=== PATIENT | male | born 1960 | race Caucasian/White ===

== ENCOUNTER 2017-12-27 10:15 | Emergency (ER) | payer OTHER ==
[~2017-12-27] VITALS: Ht 185.4 cm; Wt 83.9 kg
== END 2017-12-27 13:08 | disposition home or self-care (01) ==
LOC: ER 10:15
DX: I86.1 Scrotal varices (principal); M54.31 Sciatica, right side; F17.210 Nicotine dependence, cigarettes, uncomplicated
CPT/HCPCS: 76870; 99284

== ENCOUNTER 2019-12-21 19:41 | Emergency (ER) | payer OTHER ==
[~2019-12-21] VITALS: Ht 185.4 cm; Wt 86.2 kg
[~2019-12-21 19:41] MED LIST: HYDR1TAB94 PO
[2019-12-21] MEDS ORDERED: Silvadene20 GM TOP (20:02)
[2019-12-21] MEDS ORDERED: ONDA4ODT MM (20:02)
[2019-12-21] MEDS ORDERED: Percocet 5-3251 EACH PO (20:02)
== END 2019-12-21 21:27 | disposition home or self-care (01) ==
LOC: ER 19:41
DX: T23.272A Burn of second degree of left wrist, initial encounter (principal); T22.252A Burn of second degree of left shoulder, initial encounter; T24.292A Burn of second degree of multiple sites of left lower limb, except ankle and foot, initial encounter; T24.201A Burn of second degree of unspecified site of right lower limb, except ankle and foot, initial encounter; T31.11 Burns involving 10-19% of body surface with 10-19% third degree burns; F17.210 Nicotine dependence, cigarettes, uncomplicated; X17.XXXA Contact with hot engines, machinery and tools, initial encounter
CPT/HCPCS: 96374; 96375; 99284-25; A9270; J1170; J1885; J2405

== ENCOUNTER 2019-12-24 15:11 | Emergency (ER) | payer OTHER ==
[~2019-12-24] VITALS: Ht 185.4 cm; Wt 86.2 kg
[~2019-12-24 15:11] MED LIST changes: +ONDA4ODT MM; +Percocet 5-3251 EACH PO; +Silvadene20 GM TOP
== END 2019-12-24 17:49 | disposition short-term general hospital (02) ==
LOC: ER 15:11
DX: T24.232D Burn of second degree of left lower leg, subsequent encounter (principal); T24.231D Burn of second degree of right lower leg, subsequent encounter; T22.252D Burn of second degree of left shoulder, subsequent encounter; T22.212D Burn of second degree of left forearm, subsequent encounter; T22.222D Burn of second degree of left elbow, subsequent encounter; T23.272D Burn of second degree of left wrist, subsequent encounter; T31.11 Burns involving 10-19% of body surface with 10-19% third degree burns; F17.210 Nicotine dependence, cigarettes, uncomplicated; X13.1XXD Other contact with steam and other hot vapors, subsequent encounter
CPT/HCPCS: 96365; 96375; 99284-25; C9113; J0690; J0780; J3010